=== PATIENT | male | born 1985 | race Caucasian/White ===

== ENCOUNTER 2017-03-04 12:50 | Emergency (ER) | payer SELFPAY ==
[2017-03-04 13:48] LABS: Basophils % (Auto) 0.6 % (0.0-1.8); Eosinophils % (Auto) 0.6 % (0.0-4.3); Hemoglobin 14.4 gm/dl (11.8-15.2); Mean Corpuscular HGB Conc 34 % (32-34); Mean Corpuscular Hemoglobin 28 pg (28-32); Mean Corpuscular Volume 82 fl (84-94); Platelet Count 298 K/mm3 (140-440); Red Blood Count 5.24 M/mm3 (3.65-5.03); Red Cell Distribution Width 13.5 % (13.2-15.2); White Blood Count 9.6 K/mm3 (4.5-11.0)
[2017-03-04 14:03] LABS: Anion Gap 16 mmol/L; BUN/Creatinine Ratio 21; Blood Urea Nitrogen 15 mg/dL (9-20); Carbon Dioxide 27 mmol/L (22-30); Chloride 96.7 mmol/L (98-107); Glucose 126 mg/dL (75-100); Potassium 4.3 mmol/L (3.6-5.0); Sodium 135 mmol/L (137-145)
[2017-03-05] MEDS ORDERED: ZOFRAN IV ONE (00:38)
[2017-03-05] MEDS ORDERED: ZOFRAN ONE (00:40)
[2017-03-05 02:03] LABS: Bilirubin,Urine NEG (Negative); Blood,Urine NEG (Negative); Ketones,Urine NEG (Negative); Leukocyte Esterase,Urine NEG (Negative); Mucus,Urine 3+ /HPF; Nitrite,Urine NEG (Negative); Protein,Urine <15 mg/dL mg/dL (Negative); Urobilinogen,Urine < 2.0 mg/dL (<2.0)
--- NOTE | 2017-03-05 06:48 | Emergency Department Report ---
ED General Adult HPI - General Chief complaint: Dizziness Stated complaint: DIZZINESS,VOMITING,NAUSEA Time Seen by Provider: 03/05/17 06:14 Source: family Mode of arrival: Ambulatory Limitations: No Limitations - History of Present Illness Initial comments: Patient has a language barrier. He does not actually complain of dizziness. He is complaining of ringing in his left ear and redness of his left eye. These symptoms been present for the last few days. He denies fever chills headache sinus drainage or sore throat. -: Gradual, days(s) Location: head (left ear) Severity scale (0 -10): 0 Quality: other (Timothy) Consistency: intermittent Improves with: none Worsens with: none Associated Symptoms: denies other symptoms, other (left eye irritated) - Related Data Previous Rx's Medication Instructions Recorded Last Taken Type Amoxicillin 500 mg PO TID #30 capsule 03/05/17 Unknown Rx Sulfacetamide Sod 10% [Bleph 10] 1 drops OS Q8H #1 bottle 03/05/17 Unknown Rx Allergies Allergy/AdvReac Type Severity Reaction Status Date / Time No Known Allergies Allergy Unverified 03/04/17 13:16 ED Review of Systems ROS: Stated complaint: DIZZINESS,VOMITING,NAUSEA Other details as noted in HPI Constitutional: denies: chills, fever Eyes: as per HPI. denies: eye pain, eye discharge, vision change ENT: as per HPI. denies: throat pain Respiratory: denies: cough, shortness of breath, wheezing Cardiovascular: denies: chest pain, palpitations Endocrine: no symptoms reported Gastrointestinal: denies: abdominal pain, nausea, diarrhea Genitourinary: denies: urgency, dysuria Musculoskeletal: denies: back pain, joint swelling, arthralgia Skin: denies: rash, lesions Neurological: denies: headache, weakness, paresthesias Psychiatric: denies: anxiety, depression Hematological/Lymphatic: denies: easy bleeding, easy bruising ED Past Medical Hx - Past Medical History Previous Medical History?: No - Surgical History Past Surgical History?: Yes Additional Surgical History: left knee - Social History Smoking Status: Never Smoker Substance Use Type: Alcohol - Medications Home Medications: Home Medications Medication Instructions Recorded Confirmed Last Taken Type Amoxicillin 500 mg PO TID #30 capsule 03/05/17 Unknown Rx Sulfacetamide Sod 10% [Bleph 10] 1 drops OS Q8H #1 bottle 03/05/17 Unknown Rx ED Physical Exam - General Limitations: No Limitations General appearance: alert, in no apparent distress - Head Head exam: Present: atraumatic, normocephalic - Eye Eye exam: Present: normal appearance, PERRL, EOMI, other (conjunctivae is injected on the left anterior chambers clear and deep) - ENT ENT exam: Present: mucous membranes moist. Absent: TM's normal bilaterally ( the right TM is normal the left is cloudy and erythematous) - Neck Neck exam: Present: normal inspection - Respiratory Respiratory exam: Present: normal lung sounds bilaterally. Absent: respiratory distress - Cardiovascular Cardiovascular Exam: Present: regular rate, normal rhythm. Absent: systolic murmur, diastolic murmur, rubs, gallop - GI/Abdominal GI/Abdominal exam: Present: soft, normal bowel sounds. Absent: distended, tenderness, guarding, rebound, rigid - Rectal Rectal exam: Present: deferred - Extremities Exam Extremities exam: Present: normal inspection - Back Exam Back exam: Present: normal inspection - Neurological Exam Neurological exam: Present: alert, oriented X3, CN II-XII intact. Absent: motor sensory deficit - Psychiatric Psychiatric exam: Present: normal affect, normal mood - Skin Skin exam: Present: warm, dry, intact, normal color. Absent: rash ED Course Vital Signs 03/04/17 03/04/17 03/04/17 13:16 21:11 23:45 Temperature 98.3 F 98.3 F 97.8 F Pulse Rate 73 73 61 Respiratory 18 16 16 Rate Blood Pressure 146/92 133/85 Blood Pressure 147/99 [Left] O2 Sat by Pulse 100 99 100 Oximetry 03/05/17 03/05/17 03/05/17 00:05 01:01 03:35 Temperature 97.9 F Pulse Rate 58 L 59 L 64 Respiratory 16 16 16 Rate Blood Pressure Blood Pressure 156/82 133/81 123/81 [Left] O2 Sat by Pulse 95 95 94 Oximetry ED Medical Decision Making - Lab Data Result diagrams: 03/04/17 13:31 03/04/17 13:31 Laboratory Results - last 24 hr 03/04/17 03/04/17 03/05/17 13:31 13:31 01:21 WBC 9.6 RBC 5.24 H Hgb 14.4 Hct 43.0 MCV 82 L MCH 28 MCHC 34 RDW 13.5 Plt Count 298 Lymph % (Auto) 13.3 L Taylor % (Auto) 5.6 Eos % (Auto) 0.6 Baso % (Auto) 0.6 Lymph # 1.3 Taylor # 0.5 Eos # 0.1 Baso # 0.1 Seg Neutrophils % 79.9 H Seg Neutrophils # 7.7 Sodium 135 L Potassium 4.3 Chloride 96.7 L Carbon Dioxide 27 Anion Gap 16 BUN 15 Creatinine 0.7 L Estimated GFR > 60 BUN/Creatinine Ratio 21 Glucose 126 H POC Glucose Calcium 9.0 Urine Color Yellow Urine Turbidity Clear Urine pH 6.0 Ur Specific Sunbright 1.021 Urine Protein <15 mg/dl Urine Glucose (UA) Neg Urine Ketones Neg Urine Blood Neg Urine Nitrite Neg Urine Bilirubin Neg Urine Urobilinogen < 2.0 Ur Leukocyte Esterase Neg Urine WBC (Auto) 4.0 Urine RBC (Auto) 3.0 Urine Mucus 3+ 03/05/17 01:43 WBC RBC Hgb Hct MCV MCH MCHC RDW Plt Count Lymph % (Auto) Taylor % (Auto) Eos % (Auto) Baso % (Auto) Lymph # Taylor # Eos # Baso # Seg Neutrophils % Seg Neutrophils # Sodium Potassium Chloride Carbon Dioxide Anion Gap BUN Creatinine Estimated GFR BUN/Creatinine Ratio Glucose POC Glucose 97 Calcium Urine Color Urine Turbidity Urine pH Ur Specific Sunbright Urine Protein Urine Glucose (UA) Urine Ketones Urine Blood Urine Nitrite Urine Bilirubin Urine Urobilinogen Ur Leukocyte Esterase Urine WBC (Auto) Urine RBC (Auto) Urine Mucus Critical care attestation.: If time is entered above; I have spent that time in minutes in the direct care of this critically ill patient, excluding procedure time. ED Disposition Clinical Impression: Left otitis media Qualifiers: Otitis media type: unspecified Qualified Code(s): H66.92 - Otitis media, unspecified, left ear Conjunctivitis Qualifiers: Conjunctivitis type: acute Acute conjunctivitis type: viral Laterality: left Qualified Code(s): B30.9 - Viral conjunctivitis, unspecified Disposition: DC-01 TO HOME OR SELFCARE Is pt being admited?: No Does the pt Need Aspirin: No Condition: Stable Instructions: Otitis Media (ED), Conjunctivitis (ED) Additional Instructions: Follow-up with a primary care physician. If persists and senior search marketing analyst may be required. Rx as directed. Prescriptions: Amoxicillin 500 mg PO TID #30 capsule Sulfacetamide Sod 10% [Bleph 10] 1 drops OS Q8H #1 bottle Referrals: [facility]IMARY [facility]ARE, [Primary Care Provider] - 3-5 Days [facility] [Provider Group] - 3-5 Days Forms: AMA Form Time of Disposition: 06:49
[2017-03-05 08:18] VITALS: BP 131/85
== END 2017-03-05 08:34 | disposition home or self-care (01) ==
LOC: ED 12:50
DX: H66.92 Otitis media, unspecified, left ear (principal); B30.9 Viral conjunctivitis, unspecified
CPT/HCPCS: 36415; 80048; 81001; 82962; 85025; 96374; 99284; J2405